=== PATIENT | male | born 1975 | race Caucasian/White ===

== ENCOUNTER 2021-05-24 04:58 | Observation (INO) | payer OTHER ==
[2021-05-24 05:37] LABS: #Basophils 0.1 thou/uL (0.0-0.2); #Eosinphils 0.1 thou/uL (0.0-0.7); #Monocytes 0.4 thou/uL (0.11-0.59); #Neutrophils 5.4 thou/uL (1.40-6.50); %Basophils 0.9 % (0.0-1.0); %Lymphocytes 14.4 % (21.0-51.0); %Monocytes 6.4 % (0.0-10.0); %Neutrophils 77.3 % (42.0-75.0); Mean Corpuscular HGB CONC 34.7 g/dL (32.0-36.0); Platelet Count 142 thou/uL (130-400); RBC Distribution Width 12.3 % (11.5-14.5); Red Blood Cell (RBC) Count 4.71 mill/uL (4.70-6.10); White Blood Cell (WBC) Count 6.9 thou/uL (4.8-10.8)
[2021-05-24 05:59] LABS: ALT (SGPT) 73 U/L (8-55); AST (SGOT) 52 U/L (5-34); Albumin 3.8 g/dL (3.5-5.0); Alkaline Phosphatase 83 U/L (40-110); Anion Gap 9 mmol/L (10-20); BUN (Urea Nitrogen) 4 mg/dL (8.9-20.6); Bilirubin, Total 0.9 mg/dL (0.2-1.2); Calc. Creatinine Clearance 0 mL/min (70-130); Carbon Dioxide 29 mmol/L (22-29); Chloride 101 mmol/L (98-107); Globulin 2.1 g/dL (2.4-3.5); Glucose 132 mg/dL (70-105); Lipase 19 U/L (8-78); Protein, Total 5.9 g/dL (6.0-8.3); Sodium 137 mmol/L (136-145)
[2021-05-24 06:10] LABS: Potassium 2.3 mmol/L (3.5-5.1)
[2021-05-24] MEDS ORDERED: Potassium Chloride 20 MEQ/100 ML PREMIX BAG ONE ×2 (06:25→10:52)
[2021-05-24 09:08] LABS: Acetaminophen Less than 6.0 mcg/mL (10.0-30.0); Alcohol Less than 10 mg/dL (Less than 10); Salicylate Less than 8.0 mg/dL (15.0-30.0)
[2021-05-24 09:44] LABS: Troponin I Less than 0.010 ng/mL (< 0.028)
[2021-05-24] MEDS ORDERED: Ondansetron PF 4 MG/2 ML Vial IVP PRN (09:57)
[2021-05-24] MEDS ORDERED: Acetaminophen 325 MG TAB PO PRN (09:57)
[2021-05-24] MEDS ORDERED: Enoxaparin Sodium 40 MG/0.4 ML SYRINGE SC SCH (10:00)
[2021-05-24] MEDS ORDERED: Lorazepam 2 MG/ML VIAL SLOW IVP PRN (10:02)
[2021-05-24] MEDS ORDERED: levETIRAcetam in NS 500 MG in Premix Bag 1 BAG IVPB SCH (10:15)
[2021-05-24] MEDS ORDERED: Multivitamins, Adult 10 ML, Folic Acid 1 MG, Thiamine HCl 100 MG in Dextrose 5 %-0.45 %... IV SCH (10:45)
[2021-05-24] MEDS ORDERED: Potassium Chloride 40 MEQ in Sodium Chloride 0.9% 250 ML 250 ML IVPB SCH (10:45)
[2021-05-24] MEDS ORDERED: Acetaminophen 500 MG TAB ONE (11:53)
[2021-05-24 13:01] LABS: Troponin I Less than 0.010 ng/mL (< 0.028)
[2021-05-24] MEDS: Lactated Ringer's 1,000 ML IV SCH ×2 (14:17→20:08)
[2021-05-24] MEDS: Multivitamins, Adult 10 ML, Folic Acid 1 MG in Dextrose 5 %-0.45 % NaCl 1,000 ML IV SCH (14:17)
[2021-05-24] MEDS: Thiamine HCl 200 MG/2 ML VIAL SLOW IVP SCH (14:29)
[2021-05-24 16:07] VITALS: BMI 21.9
[2021-05-24 17:50] LABS: SARS-CoV-2 PCR by NAA Not Detected (NotDetected)
[2021-05-24] MEDS: levETIRAcetam in NS 500 MG in Premix Bag 1 BAG IVPB SCH (20:08)
[2021-05-24] MEDS: Famotidine/PF 20 mg/2ml Vial SLOW IVP SCH (20:09)
[2021-05-25] MEDS: Lactated Ringer's 1,000 ML IV SCH ×2 (03:33→16:06)
[2021-05-25 05:40] LABS: #Basophils 0.1 thou/uL (0.0-0.2); #Eosinphils 0.1 thou/uL (0.0-0.7); #Lymphocytes 1.5 thou/uL (1.20-3.40); #Monocytes 0.3 thou/uL (0.11-0.59); #Neutrophils 3.2 thou/uL (1.40-6.50); %Eosinophils 1.8 % (0.0-10.0); %Lymphocytes 28.8 % (21.0-51.0); %Monocytes 5.8 % (0.0-10.0); %Neutrophils 62.7 % (42.0-75.0); Mean Corpuscular HGB CONC 33.8 g/dL (32.0-36.0); Mean Corpuscular Hemoglobin 35.7 pg (27.0-31.0); Mean Platelet Volume 8.8 fL (7.4-10.4); Platelet Count 153 thou/uL (130-400); RBC Distribution Width 12.2 % (11.5-14.5); Red Blood Cell (RBC) Count 4.47 mill/uL (4.70-6.10); White Blood Cell (WBC) Count 5.1 thou/uL (4.8-10.8)
[2021-05-25 06:20] LABS: Anion Gap 12 mmol/L (10-20); BUN (Urea Nitrogen) Less than 4 mg/dL (8.9-20.6); Calc. Creatinine Clearance 116 mL/min (70-130); Calcium 7.9 mg/dL (7.8-10.44); Carbon Dioxide 27 mmol/L (22-29); Chloride 105 mmol/L (98-107); Glucose 94 mg/dL (70-105); Sodium 141 mmol/L (136-145)
[2021-05-25] MEDS ORDERED: Enoxaparin Sodium 40 MG/0.4 ML SYRINGE SC SCH (09:00)
[2021-05-25] MEDS ORDERED: Potassium Chloride 20 MEQ TAB PO SCH (09:00)
[2021-05-25] MEDS: Multivitamins, Adult 10 ML, Folic Acid 1 MG in Dextrose 5 %-0.45 % NaCl 1,000 ML IV SCH (09:22)
[2021-05-25] MEDS: levETIRAcetam in NS 500 MG in Premix Bag 1 BAG IVPB SCH (09:23)
[2021-05-25] MEDS: Thiamine HCl 200 MG/2 ML VIAL SLOW IVP SCH (09:23)
[2021-05-25] MEDS: Famotidine/PF 20 mg/2ml Vial SLOW IVP SCH (09:24)
[2021-05-25 15:12] VITALS: BP 165/111; TEMP 98.4
== END 2021-05-25 19:15 | disposition left against medical advice (07) ==
LOC: ERS 04:58 → ERHOLD 08:51 → 2NO 13:12
PROVIDERS: ADMIT Hospitalist; ATTEND Internal Medicine
DX: R56.9 Unspecified convulsions (principal); R07.9 Chest pain, unspecified; I10 Essential (primary) hypertension; F10.10 Alcohol abuse, uncomplicated; K21.9 Gastro-esophageal reflux disease without esophagitis; F17.210 Nicotine dependence, cigarettes, uncomplicated; D75.89 Other specified diseases of blood and blood-forming organs; R74.01 Elevation of levels of liver transaminase levels; R91.8 Other nonspecific abnormal finding of lung field; I08.8 Other rheumatic multiple valve diseases; F15.11 Other stimulant abuse, in remission; Z53.29 Procedure and treatment not carried out because of patient's decision for other reasons; Z79.899 Other long term (current) drug therapy; Z20.822 Contact with and (suspected) exposure to COVID-19; Y90.0 Blood alcohol level of less than 20 mg/100 ml
CPT/HCPCS: 36415; 36416; 70450; 71045; 71046; 80048; 80053; 80307; 82607; 82746; 83690; 84484; 85025; 93005; 93306; 96365; 96366; 96372; 96374; 96375; 96376; G0378; J1650; J1953; J3411; J3480; J7042; J7050; J7120; S0028; U0003; U0005